=== PATIENT | female | born 2000 | race Caucasian/White ===

== ENCOUNTER 2023-09-29 06:56 | Emergency (ER) | payer OTHER, SELFPAY ==
--- NOTE | ~2023-09-29 | CT_ITS ---
EXAMINATION: CT ABDOMEN AND PELVIS WITH CONTRAST CLINICAL INFORMATION: Epigastric pain COMPARISON: None available. TECHNIQUE: Multidetector volumetric images were obtained from the superior aspect of the liver through the pubic symphysis following administration 85 mL of Omnipaque 350 intravenous contrast. Sagittal and coronal reformatted images were obtained on the technologist's workstation. Oral contrast: No This CT examination was performed using dose optimization techniques as appropriate, variously including the following: *Automated exposure control *Adjustment of mA and/or kV according to patient size (this includes techniques or standardized protocols for targeted exams where dose is matched to indication/reason for exam; i.e. extremities or head) *Use of iterative reconstruction technique DLP: 322 mGy-cm FINDINGS: LUNG BASES: The visualized lung bases are unremarkable. LIVER, GALLBLADDER, AND BILIARY TREE: Liver unremarkable. Flow-related defect medial left lobe of the liver near the falciform ligament. No suspicious lesions. There is no intrahepatic biliary dilatation. The gallbladder is unremarkable with no evidence of radiopaque gallstones, gallbladder wall thickening, or obvious pericholecystic inflammatory changes. PANCREAS: Unremarkable. SPLEEN: Unremarkable. ADRENAL GLANDS: Unremarkable. KIDNEYS AND URETERS: The kidneys are normal in size, shape, and attenuation. No hydronephrosis, hydroureter, or calculi seen. No perinephric stranding. BLADDER: Unremarkable. GASTROINTESTINAL TRACT: The small and large bowel are unremarkable. The appendix is unremarkable. ABDOMINAL WALL: No significant hernia is appreciated. LYMPH NODES: Normal. VASCULAR: Unremarkable. PELVIC VISCERA: Small amount of fluid in the cul-de-sac likely physiologic. The uterus and adnexal structures to appear unremarkable. OSSEOUS STRUCTURES: Unremarkable. CT/CT abdomen pelvis w IV con IMPRESSION: Fluid in the cul-de-sac likely physiologic. No right or left lower quadrant inflammatory process. Fleischner guidelines were followed.
[2023-09-29 07:10] VITALS: BP 130/85; PULSE 90; RESP 18; TEMP 36.7; O2SAT 99; BMI 27.0
--- NOTE | 2023-09-29 07:46 | ED.GENADULT ---
HPI - General Adult General Chief complaint: Abdominal Pain Stated complaint: abd pain Time Seen by Provider: 09/29/23 07:32 Source: patient Mode of arrival: ambulatory Limitations: no limitations History of Present Illness HPI narrative: Patient is a 23 yr old female with no significant past medical history presenting with epigastric pain for 1 year that seems to be acutely worsening over the past week. Patient reports multiple episodes that last minutes/hours over the past week, severe twisting , sharp pain w/ radiation to sides and then into the flank, w/ at times accompanied by sob/ heavineess in chest. Patient reports pain has gotten signficantly worse. Also having a/c nausea no vomiting. Sometimes pain is percipitated by greasy/ constanza foods however not always. Has not seen a specialist or PCP. Went to [facility] [place] ED about a year ago for same reports they gave her no diagnosis. Not on OCPs no long travel. No hx of PE/DVT. Related Data Previous Rx's Medication Instructions Recorded aluminum-mag hydroxide-simethicone 5 ml PO 5XD PRN dyspepsia #355 mL 09/29/23 200 mg-200 mg-20 mg/5 mL oral susp (Maalox Advanced) ketorolac 10 mg tablet 10 mg PO TID PRN pain 5 days #15 09/29/23 tabs ondansetron 4 mg disintegrating 4 mg PO Q6H PRN nausea and 09/29/23 tablet vomiting #14 tabs Allergies Allergy/AdvReac Type Severity Reaction Status Date / Time No Known Allergies Allergy Verified 09/29/23 07:12 Review of Systems Review of Systems: Constitutional : No Weight loss, No Fever, No Chills, No Fatigue, No Malaise ENT/Mouth : No sore throat, No Rhinorrhea Eyes: No Eye Pain, No Swelling, No Redness Cardiovascular : No Chest Pain, No SOB, No Dyspnea on Exertion, No Orthopnea, No Edema, No Palpitations Respiratory : + SOB. No Cough, No Sputum, No Wheezing Gastrointestinal : + abdominal pain, + nausea. No Vomiting, No Diarrhea, No Constipation, No Hematochezia, No Melena Genitourinary : No Dysuria, No Urinary Frequency, No Hematuria, Musculoskeletal : No joint pain, No Myalgias, No Joint Swelling Skin : No Skin Lesions, No rash Neuro : No Weakness, No Numbness, No Dizziness, No Headache Psych : No Anxiety/Panic, No Depression Heme/Lymph: No Bruising, No Bleeding,No Lymphadenopathy Endocrine : No Polyuria, No Polydipsia All other systems reviewed and are negative Yes all other systems are reviewed and are negative [facility] Past Medical History Attestation statement: The following information was validated with the patient. Source: old records reviewed and nursing notes reviewed Social History Social History Smoked in Last 30 Days: No Use of substances other than those prescribed or required for medical reasons: No Advance Directives: No Patient : No Physical Exam ED Vital Signs: Vital Signs - 24 hr 09/29/23 07:10 09/29/23 07:56 09/29/23 10:20 Temperature 98.0 F 97.5 F Pulse Rate 90 92 72 Respiratory Rate 18 20 16 Blood Pressure 130/85 117/74 120/77 Pulse Oximetry 99 100 100 Oxygen Delivery Method Room Air Room Air Room Air BMI result Body Mass Index 27.0 vss WNL Appearance: Alert.? Oriented X3.? No acute distress.? Head: Normocephalic, atraumatic, no step-offs or deformities Eyes: Pupils equal, round and reactive to light.? CVS: Normal heart rate and rhythm.? Pulses normal.? Respiratory: No respiratory distress.? Breath sounds normal.? Abdomen: Soft and + RLQ pain on palpation. Negative murphys and rosving.? Skin: Skin warm and dry.? Normal skin color.? Normal skin turgor.? Extremities: No lower extremity edema.? No calf ttp. 5/5 strength to bilateral upper and lower extremities Neuro: Oriented X 3.? No motor deficit.? No sensory deficit. CN 2-12 intact Course Reevaluation(s) Reevaluation #1: CBC unremarkable. Chemistry no acute findings requiring intervention. Troponin negative, EKG nonischemic. Patient is noted to have a transaminitis, unclear etiology denies alcohol. Lipase normal. Beta hCG negative. D-dimer negative. UA with no infection, patient does however have large amounts of red blood cells she is currently on her period. CT abdomen and pelvis with fluid in the cul-de-sac likely physiologic. No right or left lower quadrant inflammatory changes. Unremarkable imaging. This is likely gastritis will give Maalox. Will also give Toradol for discomfort. Will have her follow-up with GI. Educated patient on diagnosis and treatment plan, answered all question, patient verbalizes understanding. At this time patient will be discharged home, advised to return with new or worsening symptoms. Educated on worrisome signs and symptoms and when to return. At this time I feel comfortable discharge home. Time: 11:11 Medical Decision Making Medical Decision Making MDM Narrative: Patient is a 23 yr old female with no significant past medical history presenting with epigastric pain for 1 year PE significant for RLQ tenderness. Negative Puri's, Rovsing sign. Appears comfortable. Likely gastritis versus gastric/duodenal ulcer. Other differentials include indigestion, PMS. Unlikely dissection, ACS, PE, acute appendicitis or cholecystitis, pancreatitis or obstruction. Will rule out metabolic derangements urinary tract infection and . Plan labs, imaging, pain management Differential Diagnosis Differential Diagnoses: The differential diagnosis associated with the presentation includes Likely gastritis versus gastric/duodenal ulcer. Other differentials include indigestion, PMS. Unlikely dissection, ACS, PE, acute appendicitis or cholecystitis, pancreatitis or obstruction. Will rule out metabolic derangements urinary tract infection and . Admission/Observation Consideration of admission/observation: Escalation of care including admission/observation considered Lab Data MDM Lab Attestation statement: I reviewed the patient's lab results. 09/29/23 08:09 09/29/23 08:09 Labs: Lab Results 09/29/23 Range/Units 08:09 WBC 7.5 (4.8-10.8) X10*3/uL RBC 4.40 (4.20-5.50) X10*6/uL Hgb 12.1 (12.0-16.0) g/dl Hct 36.9 L (37.0-47.0) % MCV 83.9 (80.0-98.0) fL MCH 27.5 (27.0-33.0) pg MCHC 32.8 (31.0-35.0) g/dl RDW 13.8 (11.0-16.0) % Plt Count 237 (160-400) X10*3/uL MPV 11.3 (9.4-12.3) fL Immature Gran % (Auto) 0.1 (0.0-0.4) % Neut % (Auto) 78.9 H (45-73) % Lymph % (Auto) 12.7 L (20-40) % Dyer % (Auto) 7.1 (2-11) % Eos % (Auto) 0.7 (0-4) % Baso % (Auto) 0.5 (0-2) % Lymph # (Auto) 1.0 L (1.2-4.9) X10*3/uL Dyer # (Auto) 0.5 (0.1-1.2) X10*3/uL Eos # (Auto) 0.1 (0.0-0.4) X10*3/uL Baso # (Auto) 0.0 (0.0-0.2) X10*3/uL Abs Immat Gran (auto) 0.01 (0.00-0.03) X10*3/uL Absolute Neuts (auto) 5.9 (2.0-8.3) x10*3/uL Absolute Nucleated RBC 0.000 (0.0-0.012) X10*3/uL Nucleated RBC % (auto) 0.0 (0.0-0.2) /100WBC D-Dimer High Sensitivty < 150 NG/ML Sodium 139 (135-145) mmol/L Potassium 4.1 (3.3-5.1) mmol/L Chloride 106 (96-108) mmol/L Carbon Dioxide 24 (22-29) mmol/L Anion Gap 13 (12-20) BUN 12 (9-16) mg/dL Creatinine 0.76 (0.5-1.4) mg/dL Estim Creat Clear Calc 103.3 Estimated GFR > 60 Random Glucose 98 (60-115) mg/dL Calcium 10.2 (8.4-10.2) mg/dL Total Bilirubin 0.4 (0.0-1.0) mg/dL Direct Bilirubin 0.2 (0.0-0.5) mg/dL AST 345 H (5-31) U/L ALT 191 H (0-31) U/L Alkaline Phosphatase 106 (39-117) U/L Troponin I High Sens < 2.7 (<3.5-17.0) ng/L Total Protein 8.3 H (6.5-8.0) g/dL Albumin 4.8 (3.5-5.0) g/dL Lipase 30 (8-78) U/L Beta HCG, Quant < 2 mIU/mL Urine Color Yellow Urine Appearance Clear Urine pH 5.5 (5.0-9.0) Ur Specific [place] 1.020 (1.005-1.025) Urine Protein Trace (Neg-Trace) mg/dL Urine Glucose (UA) Negative (Negative) mg/dL Urine Ketones Negative (Negative) mg/dL Urine Blood Large (3+) H (Negative) Urine Nitrite Negative (Negative) Ur Leukocyte Esterase Small (1+) H (Negative) Urine RBC >20 H (0-2) /HPF Urine WBC 6-10 H (0-5) /HPF Ur Squamous Epith Cells 0-2 (0-2) /HPF Urine Bacteria None Seen (None Seen) Hyaline Casts 0-2 (0-2) /LPF Urine Test NEGATIVE (NEGATIVE) Radiology Impression Discussion of test interpretation with radiology: I have reviewed the radiologist's reading. External Record Review External record reviewed: Inpatient record and Outpatient record Critical Care Time Critical Care Time Critical Care Time: Yes Total Critical Care Time: 35 Attestation: I attest to this time spent taking care of the patient, obtaining history, physical, reviewing labs, imaging, speaking to my attendin Discharge Plan Discharge Clinical Impression: Abdominal pain, Transaminitis Patient Disposition: Home, Self-Care Additional Instructions: Take your medications as prescribed. If you were prescribed antibiotics today, it is important that you take your medication to their entirety, do not skip any doses, do not finish them early. Follow-up with your primary care provider this week. Follow-up with GI. Return to the emergency department with new or worsening symptoms. Such as fevers, chills, chest pain, shortness of breath, nausea, vomiting, dizziness, headache, vision changes, lethargy In case of emergency call 911 [employer] for nausea vomiting. Toradol has been sent to your pharmacy, you tolerated this well in the department. Please take this as prescribed do not take this with ibuprofen, or other NSAIDs, do not mix this with alcohol. Side effects of this medication including increased risk for bleeding and possible kidney injury. Maalox has been given as well. Please take as prescribed FINDINGS: LUNG BASES: The visualized lung bases are unremarkable. LIVER, GALLBLADDER, AND BILIARY TREE: Liver unremarkable. Flow-related defect medial left lobe of the liver near the falciform ligament. No suspicious lesions. There is no intrahepatic biliary dilatation. The gallbladder is unremarkable with no evidence of radiopaque gallstones, gallbladder wall thickening, or obvious pericholecystic inflammatory changes. PANCREAS: Unremarkable. SPLEEN: Unremarkable. ADRENAL GLANDS: Unremarkable. KIDNEYS AND URETERS: The kidneys are normal in size, shape, and attenuation. No hydronephrosis, hydroureter, or calculi seen. No perinephric stranding. BLADDER: Unremarkable. GASTROINTESTINAL TRACT: The small and large bowel are unremarkable. The appendix is unremarkable. ABDOMINAL WALL: No significant hernia is appreciated. LYMPH NODES: Normal. VASCULAR: Unremarkable. PELVIC VISCERA: Small amount of fluid in the cul-de-sac likely physiologic. The uterus and adnexal structures to appear unremarkable. OSSEOUS STRUCTURES: Unremarkable. CT/CT abdomen pelvis w IV con IMPRESSION: Fluid in the cul-de-sac likely physiologic. No right or left lower quadrant inflammatory process. Fleischner guidelines were followed. Prescriptions: New alum-mag hydroxide-simeth [Maalox Advanced] 200-200-20 mg/5 mL suspension 5 ml PO 5XD PRN (Reason: dyspepsia) Qty: 355 0RF Rx Instructions: administer between meals and at bedtime ketorolac 10 mg tablet 10 mg PO TID PRN (Reason: pain) 5 Days Qty: 15 0RF ondansetron 4 mg tablet,disintegrating 4 mg PO Q6H PRN (Reason: nausea and vomiting) Qty: 14 0RF Referrals: [facility] [place] [Provider Group] - 2 days Physician,None [Primary Care Provider] - 2 days Stand Alone Forms: Work/School Release
[2023-09-29 07:56] VITALS: BP 117/74; PULSE 92; RESP 20; O2SAT 100
--- NOTE | 2023-09-29 08:04 | ECG_ITS ---
Test Reason : SOB Blood Pressure : / mmHG Vent. Rate : 076 BPM Atrial Rate : 076 BPM P-R Int : 136 ms QRS Dur : 076 ms QT Int : 368 ms P-R-T Axes : 069 072 059 degrees QTc Int : 414 ms Sinus rhythm with marked sinus arrhythmia Otherwise normal ECG No previous ECGs available Referred By: Sandra Ramos Electronically Signed By:James Powell
[2023-09-29 08:16] LABS: MANUAL DIFF FLAG NO
[2023-09-29 08:20] LABS: Appearance Urine Clear; Basophils Percent Auto 0.5 % (0-2); Color Urine Yellow; Eosinophils Absolute Auto 0.1 X10*3/uL (0.0-0.4); Eosinophils Percent Auto 0.7 % (0-4); Glucose Urine UA Negative (Negative); Hematocrit 36.9 % (37.0-47.0); Hemoglobin 12.1 g/dl (12.0-16.0); Imm Gran Abs Auto 0.01 X10*3/uL (0.00-0.03); Imm Gran Pct Auto 0.1 % (0.0-0.4); Leukocyte Esterase Urine Small (1+) (Negative); Lymphocytes Percent Auto 12.7 % (20-40); Mean Corpuscular HGB Conc 32.8 g/dl (31.0-35.0); Mean Corpuscular Hemoglobin 27.5 pg (27.0-33.0); Mean Corpuscular Volume 83.9 fL (80.0-98.0); Mean Platelet Volume 11.3 fL (9.4-12.3); Monocytes Absolute Auto 0.5 X10*3/uL (0.1-1.2); Monocytes Percent Auto 7.1 % (2-11); Neutrophils Absolute Auto 5.9 x10*3/uL (2.0-8.3); Neutrophils Percent Auto 78.9 % (45-73); Nitrite Urine Negative (Negative); PH 5.5 (5.0-9.0); Platelet Count 237 X10*3/uL (160-400); Red Cell Distribution Width 13.8 % (11.0-16.0); UMIC TRIGGER UACC YES; Urine Blood Large (3+) (Negative); Urine Ketones Negative (Negative); Urine Protein Trace mg/dL (Neg-Trace); White Blood Count 7.5 X10*3/uL (4.8-10.8)
[2023-09-29 08:21] LABS: UPreg QC Valid YES; Urine Pregnancy NEGATIVE (NEGATIVE)
[2023-09-29 08:25] LABS: Bacteria Urine None Seen (None Seen); Hyaline Casts Urine 0-2 /LPF (0-2); RBC Urine >20 /HPF (0-2); Squamous Epithelial Cell Urine 0-2 /HPF (0-2); UACC Culture Trigger YES
[2023-09-29 08:31] LABS: D Dimer High Sensitivity < 150 NG/ML
[2023-09-29 08:35] LABS: Alanine Aminotransferase 191 U/L (0-31); Albumin Level 4.8 g/dL (3.5-5.0); Alkaline Phosphatase 106 U/L (39-117); Anion Gap 13 (12-20); Aspartate Amino Transferase 345 U/L (5-31); Bilirubin Direct 0.2 mg/dL (0.0-0.5); Bilirubin Total 0.4 mg/dL (0.0-1.0); Blood Urea Nitrogen 12 mg/dL (9-16); Calcium 10.2 mg/dL (8.4-10.2); Carbon Dioxide 24 mmol/L (22-29); Chloride 106 mmol/L (96-108); Creatinine Clr Calc Pharmacy 103.3; Estimated Glomerular Filt Rate > 60; Glucose Random 98 mg/dL (60-115); Lipase 30 U/L (8-78); Potassium 4.1 mmol/L (3.3-5.1); Sodium 139 mmol/L (135-145); Total Protein 8.3 g/dL (6.5-8.0)
[2023-09-29 08:44] LABS: HCG Quantitative < 2 mIU/mL; Troponin-I High Sensitivity < 2.7 ng/L (<3.5-17.0)
--- NOTE | 2023-09-29 09:37 | PC.NURSE ---
#20 IV TO R LISSY.
[2023-09-29 10:20] VITALS: BP 120/77; PULSE 72; RESP 16; TEMP 36.4; O2SAT 100
[2023-09-29 11:16] VITALS: BP 112/78; PULSE 93; RESP 20; TEMP 36.8; O2SAT 98
[2023-09-29] MEDS: Magnesium Hydrox/Alum Hydrox 30 ML ORAL.SUSP PO (11:29)
[2023-09-29] MEDS: Ketorolac Tromethamine 30 MG/ML VIAL IM (11:29)
== END 2023-09-29 11:39 | disposition home or self-care (01) ==
PROVIDERS: Physician Assistant; Emergency Provider Emergency Medicine
DX: R06.02 Shortness of breath (principal); R10.13 Epigastric pain; I49.9 Cardiac arrhythmia, unspecified; R74.01 Elevation of levels of liver transaminase levels; Z79.899 Other long term (current) drug therapy
CPT/HCPCS: 36415; 74177; 80048; 80076; 81001; 81025; 83690; 84484; 84702; 85025; 85379; 87086; 93005; 96372; 99284; 99285; J1885

== ENCOUNTER → 2023-09-29 08:04 | Outpatient (BNV) | payer OTHER, SELFPAY | PROVIDERS: Emergency Provider Emergency Medicine; Visit Provider Internal Medicine Cardiovascular Disease | DX: R06.02 Shortness of breath (principal) | CPT/HCPCS: 93010 ==

== ENCOUNTER 2023-10-01 18:33 | Emergency (ER) | payer OTHER, MEDICAID, SELFPAY ==
--- NOTE | ~2023-10-01 | US_ITS ---
EXAMINATION: US ABDOMEN LIMITED CLINICAL INFORMATION: Right upper quadrant abdominal pain. COMPARISON: None available. TECHNIQUE: Real-time imaging of the right upper quadrant abdominal viscera. FINDINGS: GALLBLADDER: Dependently layering shadowing calculi. No gallbladder wall thickening. No pericholecystic fluid. COMMON BILE DUCT: Normal in caliber measuring 0.3 cm in diameter. US/US abdomen limited IMPRESSION: Gallbladder calculi without sonographic evidence of cholecystitis.
[2023-10-01 18:38] VITALS: BP 117/75; PULSE 95; RESP 16; TEMP 36.6; O2SAT 97; BMI 26.3
--- NOTE | 2023-10-01 19:02 | ED_ITS ---
HPI - Abdominal Pain General Chief Complaint: Abdominal Pain Stated Complaint: abd pain, was seen 2 days ago Time Seen by Provider: 10/01/23 19:15 Source: patient Mode of arrival: ambulatory Limitations: no limitations History of Present Illness HPI narrative: Patient is a 23 year old assigned female at with no reported medical history presenting to the emergency department today with intermittent abdominal pain. Patient states that she was seen on 09/29/2023 for this pain and was told it was gastritis and discharged home. Patient states that despite continuing to eat bland foods, she continues to have intermittent RUQ pain. Patient denies any dizziness, lightheadedness, nausea, vomiting, fever, chills, blurry vision, double vision, loss of vision, chest pain, difficulty breathing, shortness of breath, back pain, night sweats, pain with urination, increased urinary frequency, increased urinary urgency, blood in her urine or stool, syncope or a near syncopal episode, recent trauma or falls, bowel incontinence, bladder incontinence, bowel retention, bladder retention, or any other complaints at this time. MD elicited complaint: abdominal pain Onset (ago): day(s) Pain Consistency: intermittent Location: RUQ Severity: mild Exacerbating factors: eating Relieving factors: nothing Related Data Previous Rx's Medication Instructions Recorded aluminum-mag hydroxide-simethicone 5 ml PO 5XD PRN dyspepsia #355 mL 09/29/23 200 mg-200 mg-20 mg/5 mL oral susp (Maalox Advanced) ketorolac 10 mg tablet 10 mg PO TID PRN pain 5 days #15 09/29/23 tabs ondansetron 4 mg disintegrating 4 mg PO Q6H PRN nausea and 09/29/23 tablet vomiting #14 tabs Allergies Allergy/AdvReac Type Severity Reaction Status Date / Time No Known Allergies Allergy Verified 09/29/23 07:12 Review of Systems Constitutional: Reports no additional constitutional complaints, Denies chills, Denies fever(s) and Denies night sweats Eyes: Reports no additional eye complaints, Denies blurry vision, Denies change in vision, Denies diplopia, Denies eye discharge, Denies loss of vision and Denies eye pain Denies dizziness Cardiovascular: Reports no additional cardiovascular complaints, Denies chest pain, Denies lightheadedness, Denies Loss of Consciousness and Denies dyspnea Respiratory: Reports no additional respiratory complaints and Denies dyspnea Gastrointestinal: Reports no additional gastrointestinal complaints, Reports abdominal pain, Denies melena, Denies hematochezia, Denies change in bowel habits and Denies change in stool character Genitourinary: Denies hematuria, Denies urinary frequency, Denies dysuria, Denies urinary incontinence, Denies urinary hesitancy and Denies urinary urgency Musculoskeletal: Reports no additional musculoskeletal complaints, Denies numbness and Denies tingling Denies dizziness, Denies loss of vision, Denies numbness and Denies tingling Psychiatric: Reports no additional psychiatric complaints Endocrine: Reports no additional endocrine complaints Hematologic/Lymphatic: Reports no additional hematologic/lymphatic complaints Allergic/Immunologic: Reports no additional allergic/immunologic complaints [facility] Past Medical History Attestation statement: The following information was validated with the patient. Source: old records reviewed and nursing notes reviewed Social History Social History Alcohol intake: never Smoked in Last 30 Days: No Use of substances other than those prescribed or required for medical reasons: No Advance Directives: No Advance Directives Information Provided: No Patient : No Physical Exam ED Vital Signs: Vital Signs - 24 hr 10/01/23 18:38 10/01/23 19:26 10/01/23 21:21 Temperature 98 F 98.2 F 97.5 F Pulse Rate 95 89 72 Respiratory Rate 16 16 16 Blood Pressure 117/75 112/76 122/70 Pulse Oximetry 97 98 98 Oxygen Delivery Method Room Air Room Air Room Air BMI result Body Mass Index 26.3 Const General: cooperative, no acute distress, alert and awake Nutritional Appearance: well nourished Orientation/consciousness: patient oriented x3 Limitations: no limitations [facility] Head: Yes normal to inspection and Yes atraumatic Ears: hearing grossly normal bilaterally and external ears normal General nose exam: Normal external nose present, no nasal discharge noted and no epistaxis Face and sinus: Yes normal facial exam, No abrasion and No laceration Mouth: Normal oral and palatal mucosa present, no drooling and no muffled voice Eyes General: appearance normal, both eyes and all related structures Periorbital: periorbital findings normal Eyelids: Yes eyelids normal Conjunctivae: conjunctivae normal Pupils: Equal, round and reactive pupils present EOM: EOMs intact bilaterally Neck Neck: Yes normal visual inspection, Yes full ROM and Yes no lymphadenopathy Chest Chest palpation & inspection: normal inspection of the chest Resp Effort & Inspection: normal respiratory effort and able to speak in complete sentences GI Inspection: Yes normal to inspection Palpation (GI): Soft to palpation, not firm, nontender, no guarding and not rigid Neuro General: patient oriented x3 and moves all extremities Cranial nerves: Yes Equal, round and reactive pupils present Cognition (Neuro): normal cognition Motor exam (neuro): 5/5 motor strength present throughout Sensory Exam: Normal double simultaneous stimulation for sensation Coordination: [id number] test normal Extrem General: Yes normal to inspection, Yes full ROM and Yes capillary refill normal Psych Appearance: grossly normal Mental Status: mental status grossly normal Affect: normal affect Attitude: cooperative Thought process: Normal thought process present Thought content: Normal thought content present Insight: Good insight present (Psych) Course Course Course Narrative: This is an RME: Additional HPI, ROS, PE not included below will be deferred to primary provider. Patient is a 23-year-old female who presents emergency department for re-evaluation of abdominal pain. Reports persistent right-sided abdominal pain radiating into her back with decreased p.o. intake. She was seen in the emergency department 2 days ago was found to have transaminitis, discharged home with Maalox ketorolac and Zofran. Plan: Labs Medical Decision Making Medical Decision Making [facility] Narrative: Patient is a 23 year old assigned female at with no reported medical history presenting to the emergency department today with RUQ abdominal pain. Patient's physical exam was unremarkable. Patient's blood work showed improving LFTs compared to her blood work from 09/29/2023. Patient's urine showed no acute process. Patient's US of the abdomen showed a gallstone. Patient's clinical presentation is most consistent with cholelithiasis / biliary colic. I explained my physical exam findings as well as all test results to the patient. I answered all questions asked by the patient. I stressed the importance of the patient taking her medication as prescribed. I stressed the importance of the patient following up with her primary care provider and a general surgeon. I stressed the importance of the patient returning to the emergency department immediately if her symptoms were to worsen or if she were to develop any dizziness, shortness of breath, difficulty breathing, chest pain, blurry vision, loss of vision, nausea, vomiting, abdominal pain, fever, chills, back pain, or any other complaints. Patient verbalized agreement and understanding with this treatment plan and discharge. Differential Diagnosis Differential Diagnoses: The differential diagnosis associated with the presentation includes Cholecystitis Cholelithasis Abdominal pain Biliary colic Admission/Observation Consideration of admission/observation: Escalation of care including admission/observation considered Patient would have been admitted to the hospital had her work up had any findings where hospital admission was appropriate and her clinical presentation warranted hospital admission. Lab Data [facility] Lab Attestation statement: I reviewed the patient's lab results. My interpretation of these results are in the MDM Rationale portion of this note. 10/01/23 19:24 10/01/23 19:24 Labs: Lab Results 10/01/23 Range/Units 19:24 WBC 8.3 (4.8-10.8) X10*3/uL RBC 4.27 (4.20-5.50) X10*6/uL Hgb 11.9 L (12.0-16.0) g/dl Hct 36.4 L (37.0-47.0) % MCV 85.2 (80.0-98.0) fL MCH 27.9 (27.0-33.0) pg MCHC 32.7 (31.0-35.0) g/dl RDW 14.1 (11.0-16.0) % Plt Count 243 (160-400) X10*3/uL MPV 11.3 (9.4-12.3) fL Immature Gran % (Auto) 0.2 (0.0-0.4) % Neut % (Auto) 77.9 H (45-73) % Lymph % (Auto) 12.8 L (20-40) % [place] % (Auto) 6.9 (2-11) % Eos % (Auto) 1.6 (0-4) % Baso % (Auto) 0.6 (0-2) % Lymph # (Auto) 1.1 L (1.2-4.9) X10*3/uL [place] # (Auto) 0.6 (0.1-1.2) X10*3/uL Eos # (Auto) 0.1 (0.0-0.4) X10*3/uL Baso # (Auto) 0.1 (0.0-0.2) X10*3/uL Abs Immat Gran (auto) 0.02 (0.00-0.03) X10*3/uL Absolute Neuts (auto) 6.4 (2.0-8.3) x10*3/uL Absolute Nucleated RBC 0.000 (0.0-0.012) X10*3/uL Nucleated RBC % (auto) 0.0 (0.0-0.2) /100WBC Sodium 142 (135-145) mmol/L Potassium 4.1 (3.3-5.1) mmol/L Chloride 108 (96-108) mmol/L Carbon Dioxide 25 (22-29) mmol/L Anion Gap 13 (12-20) BUN 11 (9-16) mg/dL Creatinine 1.09 (0.5-1.4) mg/dL Estim Creat Clear Calc 74.0 Estimated GFR > 60 Random Glucose 76 (60-115) mg/dL Calcium 9.4 D (8.4-10.2) mg/dL Total Bilirubin 0.4 (0.0-1.0) mg/dL AST 51 H (5-31) U/L ALT 85 H (0-31) U/L Alkaline Phosphatase 80 (39-117) U/L Total Protein 7.7 (6.5-8.0) g/dL Albumin 4.4 (3.5-5.0) g/dL Lipase 29 (8-78) U/L Beta HCG, Quant < 2 mIU/mL Urine Color Dark Yellow Urine Appearance Clear Urine pH 7.0 (5.0-9.0) Ur Specific [place] >= 1.030 H (1.005-1.025) Urine Protein Trace (Neg-Trace) mg/dL Urine Glucose (UA) Negative (Negative) mg/dL Urine Ketones Trace (Negative) mg/dL Urine Blood Negative (Negative) Urine Nitrite Negative (Negative) Ur Leukocyte Esterase Trace H (Negative) Urine RBC 0-2 (0-2) /HPF Urine WBC 0-5 (0-5) /HPF Ur Squamous Epith Cells 6-10 (0-2) /HPF Urine Bacteria 1+ (None Seen) Hyaline Casts 0-2 (0-2) /LPF Independent Interpretation I performed an independent interpretation of an: EKG and Ultrasound Interpretation: My interpretation is in agreement with the radiologist's impression of this imaging study. - EXAMINATION: US ABDOMEN LIMITED CLINICAL INFORMATION: Right upper quadrant abdominal pain. COMPARISON: None available. TECHNIQUE: Real-time imaging of the right upper quadrant abdominal viscera. FINDINGS: GALLBLADDER: Dependently layering shadowing calculi. No gallbladder wall thickening. No pericholecystic fluid. COMMON BILE DUCT: Normal in caliber measuring 0.3 cm in diameter. US/US abdomen limited IMPRESSION: Gallbladder calculi without sonographic evidence of cholecystitis. Dictated By: Armin Marinelli Signed By: Electronically signed by Armin Marinelli 10/01/232121 - Vent. Rate: 053 BPM Atrial Rate: 053 BPM P-R Int: 192 ms QRS Dur: 106 ms QT Int: 464 ms P-R-T Axes : 045 -32 14 degrees QTc Int: 435 ms Sinus bradycardia Left axis deviation Minimal voltage criteria for LVH, may be normal variant (R in aVL) Inferior infarct, age undetermined Abnormal ECG 10/01/232124 Radiology Impression Discussion of test interpretation with radiology: I have reviewed the radiologist's reading. Medications Administered Discontinued Medications Generic Name Dose Route Start Last Admin Trade Name Freq PRN Reason Stop Dose Admin Ketorolac Tromethamine 15 mg 10/01/23 19:25 10/01/23 19:38 Ketorolac Tromethamine 15 Mg/Ml Vial IM 10/01/23 19:26 15 mg ONCE ONE Administration Discharge Plan Discharge Clinical Impression: Gallstone, Biliary colic Patient Disposition: Home, Self-Care Instructions: Biliary Colic (ED), Gallstones (ED) Additional Instructions: Follow up with your primary care provider and a general surgeon. Return to the emergency department immediately if your symptoms worsen or if you develop any dizziness, shortness of breath, difficulty breathing, chest pain, blurry vision, loss of vision, nausea, vomiting, abdominal pain, fever, chills, back pain, or any other complaints. Prescriptions: No Action alum-mag hydroxide-simeth [Maalox Advanced] 200-200-20 mg/5 mL suspension 5 ml PO 5XD PRN (Reason: dyspepsia) Qty: 355 0RF Rx Instructions: administer between meals and at bedtime ketorolac 10 mg tablet 10 mg PO TID PRN (Reason: pain) 5 Days Qty: 15 0RF ondansetron 4 mg tablet,disintegrating 4 mg PO Q6H PRN (Reason: nausea and vomiting) Qty: 14 0RF Referrals: [facility] [place] General Surgeons [Provider Group] (Call to establish and follow up with a general surgeon to discuss your biliary colic / gallstone. ) [facility] [facility] [place]] (Call to establish and follow up with a primary care provider. If you already have a primary care provider, please follow up with them.) [facility] [place]issy [place]Provider Group] (Call to establish and follow up with a primary care provider. If you already have a primary care provider, please follow up with them.) [facility] [place] Group] (Call to establish and follow up with a primary care provider. If you already have a primary care provider, please follow up with them.) Print Language: Persian
[2023-10-01 19:26] VITALS: BP 112/76; PULSE 89; RESP 16; TEMP 36.8; O2SAT 98
--- NOTE | 2023-10-01 19:27 | MHC.EDTECH ---
This pct just assumed care of Pt ,vitals taken ,pt was change into hospital attire ,blood drawn and urine sample collected and sent to lab .
[2023-10-01 19:30] LABS: MANUAL DIFF FLAG NO
[2023-10-01 19:31] LABS: Basophils Absolute Auto 0.1 X10*3/uL (0.0-0.2); Basophils Percent Auto 0.6 % (0-2); Eosinophils Absolute Auto 0.1 X10*3/uL (0.0-0.4); Eosinophils Percent Auto 1.6 % (0-4); Hematocrit 36.4 % (37.0-47.0); Hemoglobin 11.9 g/dl (12.0-16.0); Imm Gran Abs Auto 0.02 X10*3/uL (0.00-0.03); Imm Gran Pct Auto 0.2 % (0.0-0.4); Lymphocytes Absolute Auto 1.1 X10*3/uL (1.2-4.9); Lymphocytes Percent Auto 12.8 % (20-40); Mean Corpuscular HGB Conc 32.7 g/dl (31.0-35.0); Mean Corpuscular Hemoglobin 27.9 pg (27.0-33.0); Mean Corpuscular Volume 85.2 fL (80.0-98.0); Mean Platelet Volume 11.3 fL (9.4-12.3); Monocytes Absolute Auto 0.6 X10*3/uL (0.1-1.2); Monocytes Percent Auto 6.9 % (2-11); Neutrophils Absolute Auto 6.4 x10*3/uL (2.0-8.3); Neutrophils Percent Auto 77.9 % (45-73); Platelet Count 243 X10*3/uL (160-400); Red Blood Count 4.27 X10*6/uL (4.20-5.50); Red Cell Distribution Width 14.1 % (11.0-16.0); White Blood Count 8.3 X10*3/uL (4.8-10.8)
[2023-10-01 19:33] LABS: Appearance Urine Clear; Color Urine Dark Yellow; Glucose Urine UA Negative (Negative); Leukocyte Esterase Urine Trace (Negative); Nitrite Urine Negative (Negative); Specific Gravity - Urine >= 1.030 (1.005-1.025); UMIC TRIGGER UACC YES; Urine Blood Negative (Negative); Urine Ketones Trace mg/dL (Negative); Urine Protein Trace mg/dL (Neg-Trace)
[2023-10-01] MEDS: Ketorolac Tromethamine 15 MG/ML VIAL IM (19:38)
[2023-10-01 19:44] LABS: Alanine Aminotransferase 85 U/L (0-31); Albumin Level 4.4 g/dL (3.5-5.0); Alkaline Phosphatase 80 U/L (39-117); Anion Gap 13 (12-20); Aspartate Amino Transferase 51 U/L (5-31); Bilirubin Total 0.4 mg/dL (0.0-1.0); Blood Urea Nitrogen 11 mg/dL (9-16); Calcium 9.4 mg/dL (8.4-10.2); Carbon Dioxide 25 mmol/L (22-29); Chloride 108 mmol/L (96-108); Estimated Glomerular Filt Rate > 60; Glucose Random 76 mg/dL (60-115); Lipase 29 U/L (8-78); Potassium 4.1 mmol/L (3.3-5.1); Sodium 142 mmol/L (135-145); Total Protein 7.7 g/dL (6.5-8.0)
[2023-10-01 19:52] LABS: Bacteria Urine 1+ (None Seen); HCG Quantitative < 2 mIU/mL; Hyaline Casts Urine 0-2 /LPF (0-2); RBC Urine 0-2 /HPF (0-2); WBC Urine 0-5 /HPF (0-5)
--- NOTE | 2023-10-01 21:05 | ECG_ITS ---
Test Reason : CHEST PRESSURE Blood Pressure : / mmHG Vent. Rate : 078 BPM Atrial Rate : 078 BPM P-R Int : 134 ms QRS Dur : 076 ms QT Int : 362 ms P-R-T Axes : 068 067 050 degrees QTc Int : 412 ms Normal sinus rhythm Normal ECG When compared with ECG of 29-SEP-2023 08:59, No significant change was found Referred By: Leatha Agarwal Electronically Signed By:James Powell
[2023-10-01 21:21] VITALS: BP 122/70; PULSE 72; RESP 16; TEMP 36.4; O2SAT 98
--- NOTE | 2023-10-01 21:21 | MHC.EDTECH ---
Patient c/o for chest Pressure ,Provider was made aware ,ekg taken and was read by Provider ,vitals taken .
== END 2023-10-01 22:03 | disposition home or self-care (01) ==
PROVIDERS: Nurse Practitioner Family; Emergency Provider Emergency Medicine
DX: K80.70 Calculus of gallbladder and bile duct without cholecystitis without obstruction (principal)
CPT/HCPCS: 36415; 76705; 80053; 81001; 83690; 84702; 85025; 93005; 96372; 99284; 99285; J1885

== ENCOUNTER → 2023-10-01 21:05 | Outpatient (BNV) | payer OTHER, SELFPAY | PROVIDERS: Emergency Provider Emergency Medicine; Visit Provider Internal Medicine Cardiovascular Disease | DX: R07.89 Other chest pain (principal) | CPT/HCPCS: 93010 ==

== ENCOUNTER 2023-10-05 10:46 | Outpatient (AMB) | payer OTHER, SELFPAY ==
--- NOTE | 2023-10-05 10:48 | A.OFFVIS_ITS ---
Intake Vital Signs 3 10/05/23 10:57 Height 5 ft 3 in Weight 144 lb BMI 25.5 BP 104/65 Blood Pressure Location Lt brachial Position Sitting Pulse 89 Intake Visit Reasons: Gallstones, biliary colic Intake Note: Patient is seen in office for ER follow up visit, following gallstones. Pt c/o: onset 2 yrs on and off, now is constant, every time has a meal gets extreme pain, RUQ radiates to the back, hard to breath, vomit, diarrhea/constipation, is currently on all liquid diet [employer]visor [employer] Required: No Accompanied by: Mother Allergies No Known Allergies Allergy (Verified 10/05/23 10:56) Medication List - Last Reconciled 10/05/23 by Familia Link MD alum-mag hydroxide-simeth 200-200-20 mg/5 mL (Maalox Advanced) 5 mL PO 5XD PRN ketorolac 10 mg PO TID PRN 5 days ondansetron 4 mg PO Q6H PRN HPI HPI Comments 2 History of Present Illness0 Details 23-year-old female patient presenting wi th complaints of abdominal pain located in the epigastrium radiating into the chest and back. The pain began approximately 2 years ago and has increased in severity and frequency. She is now eating mainly liquids for the past week which seems to have reduce the amount of pain that she is experiencing. The pain was associated with nausea, vomiting, diarrhea and anorexia. She presented to the emergency department on 2 occasions the most recent visit on 10/01/2023. An ultrasound of the abdomen was performed and revealed gallstones within the gallbladder but without wall thickening, pericholecystic fluid or dilated common bile duct. She presents today to discuss possible laparoscopic cholecystectomy. [facility] Surgical History (Updated 10/05/23 @ 11:12 by Familia Link MD) [place] teeth extracted Social History Alcohol intake: never Review of Systems Const All systems reviewed & are unremarkable except as noted in HPI and below GI Reports abdominal pain, Reports loose stools, Reports nausea and Reports vomiting Physical Exam Const General: cooperative and no acute distress Nutritional Appearance: well nourished Orientation/consciousness: patient oriented x3 Limitations: no limitations HEENT Head: Yes normocephalic and Yes atraumatic Ears: hearing grossly normal bilaterally Resp Effort & Inspection: normal respiratory effort, no audible wheezes, no cough and no respiratory distress Cardio Jugular venous distension: no JVD GI Inspection: Yes normal to inspection Palpation (GI): Soft to palpation, nontender, no guarding and not rigid Percussion: Yes normal to percussion Auscultation: normal bowel sounds Skin Other: Warm, dry, no rash Neuro General: patient oriented x3 Extrem General: Yes no clubbing, cyanosis or edema Results Reviewed Results Reviewed: Assessment & Plan Assessment & Plan (1) Biliary colic: Code(s): K80.50 - Calculus of bile duct without cholangitis or cholecystitis without obstruction (2) Gallstone: Code(s): K80.20 - Calculus of gallbladder without cholecystitis without obstruction Qualifiers: Cholecystitis presence: with cholecystitis Cholecystitis acuity: acute and chronic Biliary obstruction: without biliary obstruction Qualified Code(s): K80.12 - Calculus of gallbladder with acute and chronic cholecystitis without obstruction Plan 23-year-old female patient presenting with episodes of abdominal pain in the epigastrium right upper quadrant radiating into the back found to have multiple gallstones within the gallbladder. Pain is associated with fatty food intolerance and improved when on a restricted diet. Patient is currently on a liquid diet which is helping with the abdominal pain. We discussed options for management including continuing on a low-fat restricted diet verses laparoscopic or possible open cholecystectomy. After discussion of the procedure, risks, and alternatives, she consents to the laparoscopic or possible open cholecystectomy. This will be scheduled as a short-stay surgery at her earliest convenience. She understands that she will be unable to lift greater than 10 lb for approximately 2 weeks after the surgery and should remain on a low-fat diet for approximately 1 month following the surgery. Coding Level of Care Code New Pt Level 4 (03758) Diagnoses Biliary colic K80.50 Calculus of gallbladder with acute on chronic cholecystitis without obstruction K80.12 Cholecystitis presence: with cholecystitis Cholecystitis acuity: acute and chronic Biliary obstruction: without biliary obstruction
[2023-10-05 10:57] VITALS: BP 104/65; PULSE 89; BMI 25.5
== END 2023-10-05 11:16 | disposition home or self-care (01) ==
PROVIDERS: Visit Provider Surgery
DX: K80.50 Calculus of bile duct without cholangitis or cholecystitis without obstruction (principal); K80.12 Calculus of gallbladder with acute and chronic cholecystitis without obstruction
CPT/HCPCS: 99204

== ENCOUNTER → 2023-10-05 10:46 | Outpatient (BNVA) | payer OTHER, SELFPAY | PROVIDERS: Visit Provider Surgery ==

== ENCOUNTER 2023-10-11 08:15 | Day surgery (SDC) | payer OTHER, SELFPAY ==
--- NOTE | 2023-10-08 09:38 | HO.ANESPROP2 ---
Documented by User: Margot Blancas NP 10/08/23 09:40 [facility] Active Problems Active Problems: All Active Problems (Updated 10/05/23 @ 11:14 by Familia Link MD) Gallstone (Acute) Biliary colic (Acute) Past Medical History Medical History (Updated 10/11/23 @ 08:26 by Anna Barillas, RN) Seasonal allergies Surgical History Surgical History (Updated 10/11/23 @ 08:26 by Anna Barillas, RN) [place] teeth extracted Social History Social History Alcohol intake: never Patient Tobacco Use Status: Never used Tobacco Use of substances other than those prescribed or required for medical reasons: No Are you DNR?: No Advance Directives: No Advance Directives Information Provided: Yes Meds Allergies Allergy/AdvReac Type Severity Reaction Status Date / Time No Known Allergies Allergy Verified 10/11/23 08:24 Home Medications Medication Instructions Recorded Confirmed Last Taken Type loratadine 10 mg tablet (Claritin) 10 mg PO DAILY PRN Allergy Symptoms 10/11/23 10/11/23 Unknown History Exam Pertinent Lab Results Pertinent Lab Results: Laboratory Tests 10/01/23 19:24 WBC 8.3 Hgb 11.9 L Hct 36.4 L Plt Count 243 Sodium 142 Potassium 4.1 Chloride 108 Carbon Dioxide 25 BUN 11 Creatinine 1.09 Narrative Narrative: EKG 09/2023 Vent. Rate : 078 BPM Atrial Rate : 078 BPM P-R Int : 134 ms QRS Dur : 076 ms QT Int : 362 ms P-R-T Axes : 068 067 050 degrees QTc Int : 412 ms Normal sinus rhythm Normal ECG When compared with ECG of 29-SEP-2023 08:59, No significant change was found Assessment and Plan Assessment Anesthesia Assessment: Chart Reviewed Documented by User: Yoli Gabriel MD 10/11/23 09:08 [facility] Past Medical History Medical History (Updated 10/11/23 @ 08:26 by Anna Barillas RN) Seasonal allergies Family History Family history of problems with anesthesia: No Surgical History Surgical History (Updated 10/11/23 @ 08:26 by Anna Barillas RN) [place] teeth extracted History of Problems with Anesthesia: No Social History Social History Alcohol intake: never Patient Tobacco Use Status: Never used Tobacco Use of substances other than those prescribed or required for medical reasons: No Are you DNR?: No Advance Directives: No Advance Directives Information Provided: Yes Meds Allergies Allergy/AdvReac Type Severity Reaction Status Date / Time No Known Allergies Allergy Verified 10/11/23 08:24 Home Medications Medication Instructions Recorded Confirmed Last Taken Type loratadine 10 mg tablet (Claritin) 10 mg PO DAILY PRN Allergy Symptoms 10/11/23 10/11/23 Unknown History Exam Airway Mallampati Class: II TM Dist: >3cm Neck ROM: Full Assessment and Plan Assessment Anesthesia Assessment: Anesthesia Plan Discussed Final Anesthetic Review Family History of Problems with Anesthesia: No History of Problems with Anesthesia: No NPO: Yes ASA Class: II Final Preanesthetic Review: No Changes in Pt Med Stat, Meds/Allgs Chart Reviewed, Consent Obtained/Reviewed and Anes Risks/Benef Reviewed Patient Risk: Low Procedure Risk: Intermediate Anesthetic Plan Anesthetic Plan: GA Disposition: Standard PACU
[2023-10-11] VITALS (9 sets, daily range): BP systolic 103–117; BP diastolic 64–78; PULSE 65–102; RESP 10–16; TEMP 36.6–36.9; O2SAT 98–100; BMI 25.5
[2023-10-11 08:36] LABS: UPreg QC Valid YES; Urine Pregnancy NEGATIVE (NEGATIVE)
[2023-10-11] MEDS: Lactated Ringers 1,000 ML 100 ML IVCONT (08:49)
--- NOTE | 2023-10-11 09:29 | MHC.SHP ---
Pre-Procedural Eval Section A - 24 Hr Update-Section A only Date of Service: 10/11/23 The patient is an INPATIENT: No Changes since office visit: Yes Patient answered all questions; No Cold of Flu in the past 2 weeks, No New Medical Problems and No Changes in Medication The patient has been examined within 24 hours of the surgical procedure. The History & Physical has been completed within 30 days and I have reviewed it.: Yes Section B - Complete if H&P > 30 days Chief Complaint: Calculus of bile duct without cholangitis or jonathan Allergies: Allergies Allergy/AdvReac Type Severity Reaction Status Date / Time No Known Allergies Allergy Verified 10/11/23 08:24 Plan Diagnosis/Plan: Unchanged I have reviewed the history and physical and performed a pertinent physical examination on my patient. No changes have occurred unless specified. Time Spent With Patient Time: Total time managing care of this patient today ____ minutes.
--- NOTE | 2023-10-11 11:05 | W.PM.OPN ---
Operative Note Operative Note Date of Service: 10/11/23 Narrative: Preoperative diagnosis: Biliary colic, gallstones Postoperative diagnosis: Same Procedure: Laparoscopic cholecystectomy Surgeon: Familia Link MD Early Childhood Associate: OMER Luque, GLORIA Palm Anesthesia: General endotracheal Indications for procedure: 23-year-old female patient presenting with complaints of epigastric abdominal pain which has increased in severity and frequency. Patient was found to have gallstones within the gallbladder. Operative findings: Acutely inflamed gallbladder with edema within the gallbladder wall. Single large gallstone noted within the neck of the gallbladder. Specimen: gallbladder Estimated blood loss: 2 mL Complications: None Procedure details: Patient was brought to the OR and placed in a supine position. After administering general anesthesia the patient's abdomen was prepped with ChloraPrep and draped in a sterile fashion. A surgical time-out was called the consent confirmed. Patient received preoperative antibiotics and Venodyne boots were in place. Local anesthesia consisting of 0.5% Sensorcaine without epinephrine was infiltrated in a periumbilical region. A 5 mm incision was made above the umbilicus in a transverse fashion. The Veress needle was then inserted while elevating abdominal cavity with towel clips. After positive drop test the abdomen was insufflated to a pressure of 15 mm of mercury. The Veress needle was then removed and a 5 mm trocar inserted. The camera was inserted in the abdomen explored. A 12 mm trocar was then placed in the epigastrium. Two 5 mm trocars placed in the right upper quadrant by the food and beverage assistant manager. The patient was placed in reverse Trendelenburg positioning and rotated to the left. The gallbladder was grasped with the fundus and retracted cephalad by the food and beverage assistant manager. The infundibulum was then grasped and retracted away from the liver bed, also by the food and beverage assistant manager. The Dolphin dissected was then used by the surgeon to dissect the peritoneum off the infundibulum to reveal the junction with the cystic duct. Cystic artery was noted slightly medial and posterior to the cystic duct. After obtaining a critical view the cystic duct was doubly clipped and divided. The cystic artery was then doubly clipped and divided. The gallbladder was then dissected off the liver bed using electrocautery with an L hook. Hemostasis was assured all times using the electrocautery. When the gallbladder is completely dissected off the liver bed was placed in an Endo-Catch bag and brought out through the epigastric incision. The gallbladder was sent to pathology for further examination. The abdomen was then re-examined. The liver bed was irrigated and suctioned dry. No bleeding or bile leak could be identified. CO2 was then evacuated and all trocars removed. Fascia was closed at the epigastric incision using a [id number] 0 Polysorb suture. Skin was closed in all incisions using a subcuticular 4 0 Polysorb suture by both the surgeon and food and beverage assistant manager. Sterile dressings consisting of Steri-Strips, 2 x 2 gauze, and Tegaderm were then applied. The patient tolerated the procedure well. Sponge instrument and needle counts reported as correct. The patient was transferred to PACU in stable condition.
[2023-10-11] MEDS: ondansetron HCL 4 MG/2 ML VIAL IVPUSH (11:39)
[2023-10-11] MEDS: Acetaminophen 1,000 MG/100 ML PIGGYBACK 400 MG IV (12:05)
[2023-10-11] MEDS: droPERidol 5 MG/2 ML VIAL 0.625 MG IVPUSH (12:18)
== END 2023-10-11 13:28 | disposition home or self-care (01) ==
PROVIDERS: Nurse Practitioner; Visit Provider Surgery
PROC: 0FT44ZZ Resection of Gallbladder, Percutaneous Endoscopic Approach (ICD-10-PCS; CPT 47562; principal; 2023-10-11 09:50)
DX: K80.10 Calculus of gallbladder with chronic cholecystitis without obstruction (principal); J30.2 Other seasonal allergic rhinitis; Z79.899 Other long term (current) drug therapy
CPT/HCPCS: 47562; 81025; 88304; J0131; J0665; J1100; J1790; J2250; J2405; J2704; J3010

== ENCOUNTER → 2023-10-11 08:15 | Outpatient (BNV) | payer OTHER, SELFPAY | PROVIDERS: Visit Provider Surgery | DX: K80.50 Calculus of bile duct without cholangitis or cholecystitis without obstruction (principal) | CPT/HCPCS: 47562 ==

== ENCOUNTER 2023-10-19 10:54 | Outpatient (AMB) | payer OTHER, SELFPAY ==
--- NOTE | 2023-10-19 10:57 | A.OFFVIS_ITS ---
Intake Vital Signs 10/19/23 11:01 Height 5 ft 3 in Weight 142 lb 4 oz BMI 25.2 BP 117/69 Blood Pressure Location Lt brachial Position Sitting Pulse 89 Intake Visit Reasons: S/p lap vs open cholecystectomy Intake Note: Patient is seen in office for post op assessment post laparoscopic cholecystectomy. Pt c/o: denies any concerns at the time of visit Op: 10/11/23 Head Char Filter Tank Tender Required: No Accompanied by: Self / Same As Patient Allergies No Known Allergies Allergy (Verified 10/19/23 11:01) Medication List - Last Reconciled 10/19/23 by Familia Link MD ketorolac 10 mg PO TID PRN 5 days loratadine (Claritin) 10 mg PO DAILY PRN HPI HPI Comments History of Present Illness Details Patient returns 1 week following laparoscopic cholecystectomy for acute and chronic cholecystitis. Operative findings included inflamed gallbladder with a single large gallstone at the neck of the gallbladder. She reports feeling much improved and is able to tolerate a diet, albeit restricted, without nausea or vomiting. She has some soreness in the incisions but feels much improved overall. [facility] Medical History Seasonal allergies Surgical History History of laparoscopic cholecystectomy (10/11/23) [place] teeth extracted Social History Alcohol intake: never Patient Tobacco Use Status: Never used Tobacco Physical Exam Const General: comfortable and no acute distress Nutritional Appearance: well nourished Orientation/consciousness: patient oriented x3 Resp Effort & Inspection: normal respiratory effort GI Other: Trocar incisions are clean, dry, and intact without redness or discharge. No evidence of hernia or infection. Skin General skin exam: no rashes or lesions noted Neuro General: patient oriented x3 Assessment & Plan Assessment & Plan (1) Biliary colic: Code(s): K80.50 - Calculus of bile duct without cholangitis or cholecystitis without obstruction (2) Gallstone: Code(s): K80.20 - Calculus of gallbladder without cholecystitis without obstruction Qualifiers: Biliary obstruction: without biliary obstruction Cholecystitis acuity: acute and chronic Cholecystitis presence: with cholecystitis Qualified Code(s): K80.12 - Calculus of gallbladder with acute and chronic cholecystitis without obstruction Plan 23-year-old female returning 1 week following a laparoscopic cholecystectomy. She was found to have both chronic and acute cholecystitis due to cholelithiasis. She tolerated the procedure well and feels much improved today. Her wounds are clean and intact without evidence of infection or hernia. She should avoid lifting greater than 10 lb for 1 more week after which she may return to normal activity. She should follow up as needed. Coding Level of Care Code Global (25369) Diagnoses Biliary colic K80.50 Calculus of gallbladder with acute on chronic cholecystitis without obstruction K80.12 Biliary obstruction: without biliary obstruction Cholecystitis acuity: acute and chronic Cholecystitis presence: with cholecystitis
[2023-10-19 11:01] VITALS: BP 117/69; PULSE 89; BMI 25.2
== END 2023-10-19 11:03 | disposition home or self-care (01) ==
PROVIDERS: Visit Provider Surgery
DX: K80.50 Calculus of bile duct without cholangitis or cholecystitis without obstruction (principal); K80.12 Calculus of gallbladder with acute and chronic cholecystitis without obstruction
CPT/HCPCS: 99024

== ENCOUNTER → 2023-10-19 10:54 | Outpatient (BNVA) | payer OTHER, SELFPAY | PROVIDERS: Visit Provider Surgery ==

== ENCOUNTER 2024-07-09 23:01 | Emergency (ER) | payer OTHER, SELFPAY ==
--- NOTE | 2024-07-09 | ECG_ITS ---
Test Reason : syncopee Blood Pressure : / mmHG Vent. Rate : 085 BPM Atrial Rate : 085 BPM P-R Int : 148 ms QRS Dur : 076 ms QT Int : 362 ms P-R-T Axes : 058 057 042 degrees QTc Int : 430 ms Normal sinus rhythm Normal ECG When compared with ECG of 01-OCT-2023 21:17, No significant change was found Referred By: Generic ED Physician Electronically Signed By:ANDRÉS ROBERTO MD
[2024-07-09 23:04] VITALS: BP 124/91; PULSE 94; O2SAT 98
[2024-07-09 23:13] VITALS: BP 132/92; PULSE 88; RESP 18; TEMP 36.8; O2SAT 98; BMI 23.9
[2024-07-09 23:16] VITALS: PULSE 88; O2SAT 98
[2024-07-09 23:24] VITALS: BP 121/87; PULSE 77
[2024-07-09 23:25] VITALS: BP 127/86; BP 132/84; PULSE 101; PULSE 88
--- NOTE | 2024-07-09 23:27 | MHC.EDTECH ---
Patient was biba ,ekg taken and was read by Provider ,Orthostatics vitals taken ,Albert safety measure in Place ,and Patient was hooked up to program director/traffic director ,Plan of care continue .
--- NOTE | 2024-07-09 23:44 | ED.SYNCOPE ---
HPI - Syncope General Chief Complaint: Syncope Stated Complaint: SYNCOPAL EPISODE/CP/SOB PER EMS Time Seen by Provider: 07/09/24 23:17 Source: patient and EMS Mode of arrival: EMS Limitations: no limitations History of Present Illness ED Provider: enriqueta JONES narrative: Patient's history of anxiety/panic attack with syncope is in the past has a detailed evaluation by ethylene plant helper diagnose syncope secondary to anxiety. No history of seizures today patient was sitting in the car with her boyfriend relax denied any anxiety all of a sudden she passes out with no seizure-like activities no tongue bite no incontinence lasted for about 10-15 minutes after that patient was back to normal patient does not remember anything Related Data Home Medications ?Medication ?Instructions ?Recorded ?Confirmed loratadine 10 mg tablet (Claritin) 10 mg PO DAILY PRN Allergy Symptoms 10/11/23 10/19/23 Previous Rx's ?Medication ?Instructions ?Recorded ketorolac 10 mg tablet 10 mg PO TID PRN pain 5 days #15 09/29/23 tabs Allergies Allergy/AdvReac Type Severity Reaction Status Date / Time No Known Allergies Allergy Verified 07/09/24 23:14 Review of Systems Review of Systems: Yes all other systems are reviewed and are negative PMFSH Past Medical History Medical History Seasonal allergies Surgical History History of laparoscopic cholecystectomy (10/11/23) [place] teeth extracted Social History Social History Alcohol intake: never Patient Tobacco Use Status: Never used Tobacco Smoked in Last 30 Days: No Use of substances other than those prescribed or required for medical reasons: No Advance Directives: No Advance Directives Information Provided: Yes Do you have a plan to hurt others: No Plan Patient : No Physical Exam Vital Signs: Vital Signs: Last Vital Signs Temp 98.2 F 07/09/24 23:57 Pulse 101 H 07/09/24 23:57 Resp 18 07/09/24 23:57 BP 132/84 07/09/24 23:57 Pulse Ox 99 07/09/24 23:57 O2 Del Method Room Air 07/09/24 23:16 BMI result Body Mass Index 23.9 Appearance: Alert. Oriented X3. No acute distress. Eyes: PERRLA, No Nystagmus ENT: Pharynx normal. Oral Mucosa moist Neck: Normal inspection. Neck supple. CVS: Normal heart rate and rhythm. Pulses normal. No murmur/rub or gallop Respiratory: No respiratory distress. Equal air entry bilateral, no wheezing/rales/rhonchi Abdomen: Soft and nontender. Bowel sounds are present, no mass palpable, no CVA tenderness Skin: Skin warm and dry. Normal skin color. Normal skin turgor. Extremities: No lower extremity edema. No calf tenderness Neuro: Oriented X 3. No motor deficit. No sensory deficit.No cerebellar signs , cranial nerves II-XII intact Medical Decision Making Medical Decision Making MDM Narrative: Patient with frequent syncope episode likely anxiety induced syncope as in the past but patient denied any syncope anxiety at this time patient advised to follow with neurologist may be possible she has a absence seizures advised to follow with PCP patient's EKGs normal in orthostatics normal Differential Diagnosis Differential Diagnoses: The differential diagnosis associated with the presentation includes Absence seizure/conversion disorder/anxiety induced syncope/cardiac cause Independent Interpretation I performed an independent interpretation of an: EKG Interpretation: Normal sinus rhythm heart rate 85 beats per minute normal interval normal axis no acute STT wave changes no acute ischemia Discharge Plan Discharge Clinical Impression: Syncopal episodes Patient Disposition: Home, Self-Care Instructions: Syncope (ED) Additional Instructions: Follow with your PCP further evaluation You may need to see neurologist to rule out epilepsy Prescriptions: No Action loratadine [Claritin] 10 mg Tablet 10 mg PO DAILY PRN (Reason: Allergy Symptoms) ketorolac 10 mg tablet 10 mg PO TID PRN (Reason: pain) 5 Days Qty: 15 0RF Referrals: Roxi Vitale MD [Physician] - 1 week Interventions: ED Discharge Assessment Last Done: 07/09/24 23:57 Discharge Date/Time: 07/09/24 23:57 Print Language: Kinyarwanda
[2024-07-09 23:57] VITALS: BP 132/84; PULSE 101; RESP 18; TEMP 36.8; O2SAT 99
== END 2024-07-09 23:57 | disposition home or self-care (01) ==
PROVIDERS: Emergency Provider Internal Medicine
DX: R55 Syncope and collapse (principal); R07.89 Other chest pain; R06.82 Tachypnea, not elsewhere classified; F41.9 Anxiety disorder, unspecified; Z79.899 Other long term (current) drug therapy
CPT/HCPCS: 93005; 99284; 99285

== ENCOUNTER → 2024-07-09 23:09 | Outpatient (BNV) | payer OTHER, SELFPAY | PROVIDERS: Emergency Provider Internal Medicine; Visit Provider Internal Medicine Cardiovascular Disease | DX: R55 Syncope and collapse (principal) | CPT/HCPCS: 93010 ==

== ENCOUNTER 2025-03-24 21:41 | Emergency (ER) | payer OTHER, SELFPAY ==
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
[2025-03-24 21:48] VITALS: BP 140/84; PULSE 100; RESP 19; TEMP 36.6; O2SAT 99; BMI 24.7
--- OUTSIDE RECORDS SUMMARY | 2025-03-24 22:18 | XMS_ITS | Encounter Summary ---
Author Organization [facility] Address [address] [place] [id number] Phone Care Team Providers Care Linen Supply Load Builder Name Role Phone Khris Platt MD Primary Care Provider Dora drew Encounter Details Date Type Department Care Team (Late st Contact Info) Description 01/23/2018 Conversion Encounter [facility] [address] [address] Social History Tobacco Use Types Packs/Day Years Used Date Smoking Tobacco: Never Assessed Comments Unknown Sex and Gender Information Value Date Recorded Sex Assigned at Not on file Legal Sex Female 6:10 PM EDT Gender Identity Not on file Sexual Orientation Not on file documented as of this encounter Plan of Treatment Not on file documented as of this encounter Visit Diagnoses Not on filedocumented in this encounter Care Teams Linen Supply Load Builder Relationship Specialty Start Date End Date Khris Platt MD PCP - General Pediatrics 01/26/18 documented as of this encounter
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
[2025-03-25 00:01] VITALS: BP 132/78; PULSE 78; RESP 16; TEMP 36.7; O2SAT 99
== END 2025-03-25 00:02 | disposition home or self-care (01) ==
PROVIDERS: Emergency Provider Emergency Medicine
DX: Z04.1 Encounter for examination and observation following transport accident (principal); R07.89 Other chest pain
CPT/HCPCS: 71101; 99283; 99284

== ENCOUNTER → 2025-03-24 21:50 | Outpatient (BNV) | payer OTHER, SELFPAY | PROVIDERS: Emergency Provider Emergency Medicine; Visit Provider Radiology Diagnostic Radiology | DX: R07.89 Other chest pain (principal); V89.2XXA Person injured in unspecified motor-vehicle accident, traffic, initial encounter | CPT/HCPCS: 71101 ==

== ENCOUNTER → 2025-04-24 00:03 | Outpatient (BNV) | payer OTHER, SELFPAY | PROVIDERS: Visit Provider Radiology Diagnostic Radiology | DX: R07.9 Chest pain, unspecified (principal) | CPT/HCPCS: 71046 ==

== ENCOUNTER 2025-04-24 00:17 | Emergency (ER) | payer OTHER, SELFPAY ==
--- NOTE | ~2025-04-24 | XR_ITS ---
CLINICAL HISTORY: cp 2 view chest x-ray Comparison: CR - XR RIBS RT MIN 3V W CXR1V - 03/24/25 22:50 EDT Findings: No consolidation or effusion. Normal size heart. No acute fracture. IMPRESSION: 1. No acute findings. This document has been electronically signed by: Que Patel MD on 04/24/2025 01:57:07
[2025-04-24 00:25] VITALS: BP 140/80; PULSE 90; O2SAT 100
[2025-04-24 00:45] VITALS: BP 120/87; PULSE 87; RESP 18; TEMP 37.1; O2SAT 99; BMI 30.5
--- OUTSIDE RECORDS SUMMARY | 2025-04-24 01:00 | XMS_ITS | Encounter Summary ---
Author Organization [facility] Address [address] [place] [phone] Phone Care Team Providers Care Manager Council Name Role Phone Khris Platt MD Primary Care Provider Dora drew Encounter Details Date Type Department Care Team (Late st Contact Info) Description 01/23/2018 Conversion Encounter [facility] [address] [address] Social History Tobacco Use Types Packs/Day Years [...] on filedocumented in this encounter Care Teams Manager Council Relationship Specialty Start Date End Date Khris Platt MD PCP - General Pediatrics 01/26/18 documented as of this encounter
[2025-04-24 01:19] LABS: MANUAL DIFF FLAG NO
[2025-04-24 01:21] LABS: Hematocrit 38.4 % (37.0-47.0); Hemoglobin 13.0 g/dl (12.0-16.0); Imm Gran Abs Auto 0.03 X10*3/uL (0.00-0.03); Imm Gran Pct Auto 0.3 % (0.0-0.4); Lymphocytes Absolute Auto 1.5 X10*3/uL (1.2-4.9); Mean Corpuscular HGB Conc 33.9 g/dl (31.0-35.0); Mean Corpuscular Hemoglobin 27.9 pg (27.0-33.0); Mean Corpuscular Volume 82.4 fL (80.0-98.0); NRBC Abs Auto 0.000 X10*3/uL (0.0-0.012); NRBC Pct Auto 0.0 /100WBC (0.0-0.2); Platelet Count 308 X10*3/uL (160-400); Red Blood Count 4.66 X10*6/uL (4.20-5.50); White Blood Count 10.7 X10*3/uL (4.8-10.8)
[2025-04-24 01:42] LABS: Alanine Aminotransferase 20 U/L (0-31); Albumin Level 4.9 g/dL (3.5-5.0); Alkaline Phosphatase 88 U/L (39-117); Anion Gap 17 (12-20); Aspartate Amino Transferase 26 U/L (5-31); Blood Urea Nitrogen 16 mg/dL (9-16); Calcium 9.9 mg/dL (8.4-10.2); Carbon Dioxide 23 mmol/L (22-29); Chloride 106 mmol/L (96-108); Creatinine Clr Calc Pharmacy 108.5; Estimated Glomerular Filt Rate > 60; Potassium 3.8 mmol/L (3.3-5.1); Sodium 142 mmol/L (135-145); Total Protein 8.1 g/dL (6.5-8.0)
[2025-04-24 01:58] LABS: Troponin-I High Sensitivity < 2.7 ng/L (<3.5-17.0)
--- NOTE | 2025-04-24 03:46 | PC.NURSE ---
EDT made RN aware that the patient was standing and requesting to be sent her test results. The pt was awake and alert, oriented and well appearing without distress noted. The pt reports feeling better and denied additional/continued pain and she was breathing at a regular rate and rhythm. RN made patient aware of the patient portal to which she stated she received an email about it. she was observed to independently ambulate out of the ed without assistance required
== END 2025-04-24 03:53 | disposition left against medical advice (07) ==
PROVIDERS: Emergency Provider Emergency Medicine
DX: R07.9 Chest pain, unspecified (principal); Z53.21 Procedure and treatment not carried out due to patient leaving prior to being seen by health care provider
CPT/HCPCS: 36415; 71046; 80053; 84484; 85025; 99281